=== PATIENT | female | born 1955 | race Caucasian/White ===

== ENCOUNTER 2023-10-07 13:34 | Emergency (ER) | payer OTHER, SELFPAY ==
[2023-10-07 13:41] VITALS: BP 133/58; PULSE 70; RESP 16; TEMP 36.6; O2SAT 99; BMI 30.5
--- NOTE | 2023-10-07 13:48 | DI.CT.S_ITS ---
PROCEDURE: CT HEAD/BRAIN WO CON INDICATIONS: headinjury 4/7 ongoing headaches/dizziness TECHNIQUE: Noncontrast 4.5 mm thick angled axial sections acquired from the foramen magnum to the vertex, with coronal and sagittal reformats. For radiation dose reduction, the following was used: automated exposure control, adjustment of mA and/or kV according to patient size. COMPARISON: None. FINDINGS: Image quality: Diagnostic. CSF spaces: Basal cisterns are patent. No extra-axial fluid collections. Ventricles are normal in size and shape. Brain: No midline shift. No intracranial masses or hemorrhage. [place]-white matter interface is normal. Skull and face: Calvarium and visualized facial bones are intact, without suspicious lesions. Sinuses: Visualized sinuses and mastoids are clear. IMPRESSION: No acute intracranial pathology. Dictated by: Mar Patel M.D. on 10/07/2023 at 14:49 Approved by: Mar Patel M.D. on 10/07/2023 at 14:51
--- NOTE | 2023-10-07 14:10 | PC.NURSE ---
Pt reports initial injury 08/16. An oven drawer came out and hit her in the left side of her head while unloading it off of a truck. No LOC, no thinners. States headache suddenly came back friday into friday. Sharp on the left by her yazidism that is also tender to touch, lightheaded, pressure feeling like my head is going to explode. Last had 400mg advil 400mg at 0630. She is worried because her mother of an aneurysm 10 years ago.
[2023-10-07] MEDS: SODIUM CHLORIDE 0.9% 1,000 ML 1000 ML IV (14:42)
[2023-10-07] MEDS: METOCLOPRAMIDE 10 MG/2 ML INJ IV (14:43)
[2023-10-07] MEDS: KETOROLAC 30 MG/ML VIAL 15 MG IV (14:43)
[2023-10-07] MEDS: DEXAMETHASONE 10 MG/ML VIAL IV (14:44)
--- NOTE | 2023-10-07 16:17 | ED.HEATRA ---
HPI - Head Injury <Thomas Tyler PA-C - Last Filed: 10/07/23 16:42> General Chief complaint: Head Injury Stated complaint: Head injury Time Seen by Provider: 10/07/23 14:02 Source: patient Mode of arrival: Ambulatory History of Present Illness HPI Narrative: 67-year-old female with past medical history osteoarthritis presents to the ED with a right-sided headache. Patient states that on August 16, patient was struck in the head by an object from the trunk of her car when she was opening it. Patient did not lose consciousness at the time. Patient states that her right temporal felt sore, however she felt fine after a few days. Patient states that over the last 2-3 days, patient has had recurring headaches in that same right temporal area. Patient is concerned that she might have some intracranial injuries, especially in the light of her mother recently dying from a brain aneurysm. Related Data Allergies Allergy/AdvReac Type Severity Reaction Status Date / Time No Known Drug Allergies Allergy Verified 10/07/23 13:44 Review of Systems <Thomas Tyler PA-C - Last Filed: 10/07/23 16:42> Constitutional Constitutional: Denies chills, Denies fatigue, Denies fever(s), Denies frequent falls, Reports headache(s), Denies lethargy and Denies weakness Eyes Eyes: Denies change in vision, Denies eye discharge, Denies irritation and Denies loss of vision ENT Ears, Nose, Mouth, and Throat: Denies change in voice, Denies dizziness, Reports headache(s), Denies neck pain, Denies sore throat and Denies throat swelling Cardiovascular Cardiovascular: Denies chest pain, Denies irregular heart rhythm, Denies lightheadedness, Denies palpitations, Denies dyspnea, Denies dyspnea on exertion and Denies orthopnea Respiratory Respiratory: Denies cough, Denies dyspnea, Denies dyspnea on exertion and Denies wheezing Gastrointestinal Gastrointestinal: Denies abdominal pain, Denies change in bowel habits, Denies diarrhea, Denies nausea and Denies vomiting Musculoskeletal Musculoskeletal: Denies neck pain and Denies numbness Integumentary/Breasts Skin/Breast: Denies pruritus, Denies erythema, Denies rash and Denies wounds Neurologic Neurologic: Denies behavioral changes, Denies confusion, Denies dizziness, Denies frequent falls, Reports headache(s), Denies loss of vision, Denies numbness and Denies weakness Psychiatric Psychiatric: Denies anxiety, Denies behavioral changes, Denies confusion, Denies depression, Denies homicidal ideation and Denies suicidal ideation Endocrine Endocrine: Denies fatigue, Denies flushing and Denies palpitations Hematologic/Lymphatic Hematologic/Lymphatic: Denies easy bruising Allergic/Immunologic Allergic/Immunologic: Denies urticaria, Denies throat swelling and Denies wheezing Patient History <Thomas Tyler PA-C - Last Filed: 10/07/23 16:42> Social History Smoking Status: Never smoker Smoking Status: Never smoker alcohol intake frequency: a few times a month Substance Use Type: does not use Exam <Thomas Tyler PA-C - Last Filed: 10/07/23 16:42> Narrative Exam Narrative: Const General:?cooperative, healthy appearing and comfortable [facility] Head:?normal to inspection Ears:?hearing grossly normal bilaterally Nose:?external nose normal Face and sinus:?normal facial exam and sinuses nontender Mouth:?oral mucosae normal Throat:?posterior oropharynx normal Eyes General:?appearance normal, both eyes and all related structures Neck Neck:?normal visual inspection and no lymphadenopathy noted Resp Effort & Inspection:?normal respiratory effort Auscultation:?clear to auscultation bilaterally Cardio Rate:?regular rate Rhythm:?regular rhythm Neuro General:?patient alert, patient awake and patient oriented x3; PERRLA, gait normal; CN 1 through 12 intact bilaterally Initial Vital Signs Initial Vital Signs: Vital Signs Temperature 98 F 10/07/23 13:41 Pulse Rate 70 10/07/23 13:41 Respiratory Rate 16 10/07/23 13:41 Blood Pressure 133/58 L 10/07/23 13:41 Pulse Oximetry 99 10/07/23 13:41 Oxygen Delivery Method Room Air 10/07/23 13:41 <Travis Davison DO - Last Filed: 10/07/23 16:50> Initial Vital Signs Initial Vital Signs: Vital Signs Temperature 98 F 10/07/23 13:41 Pulse Rate 70 10/07/23 13:41 Respiratory Rate 16 10/07/23 13:41 Blood Pressure 133/58 L 10/07/23 13:41 Pulse Oximetry 99 10/07/23 13:41 Oxygen Delivery Method Room Air 10/07/23 13:41 Course <Thomas Tyler PA-C - Last Filed: 10/07/23 16:42> Orders Ordered: ED Orders 10/07/23 13:48 CT head/brain wo con Stat Discontinued Medications Dexamethasone (Dexamethasone 10 Mg/Ml Vial) 10 mg IV NOW ONE Stop: 10/07/23 14:35 Last Admin: 10/07/23 14:44 Dose: 10 mg Documented By: DIMITRIOS Sodium Chloride (Normal Saline 0.9%) 1,000 mls @ 1,000 mls/hr IV BOLUS ONE Stop: 10/07/23 15:32 Last Infusion: 10/07/23 15:33 Dose: Infused Documented By: Admin: 10/07/23 14:42 Dose: 1,000 mls/hr Documented By: DIMITRIOS Ketorolac Tromethamine (Ketorolac 30 Mg/Ml Vial) 15 mg IV NOW ONE Stop: 10/07/23 14:34 Last Admin: 10/07/23 14:43 Dose: 15 mg Documented By: DIMITRIOS Metoclopramide HCl (Metoclopramide 10 Mg/2 Ml Inj) 10 mg IV NOW ONE Stop: 10/07/23 14:34 Last Admin: 10/07/23 14:43 Dose: 10 mg Documented By: DIMITRIOS Morphine Sulfate (Morphine 4 Mg/Ml Inj) 4 mg IV NOW ONE Stop: 10/07/23 16:20 Last Admin: 10/07/23 16:20 Dose: Not Given Documented By: DIMITRIOS Vital Signs Vital signs: Vital Signs - 8 hr 10/07/23 13:41 10/07/23 16:21 Temperature 98 F 98 F Pulse Rate 70 65 Respiratory Rate 16 16 Blood Pressure 133/58 L 140/64 Pulse Oximetry 99 99 Oxygen Delivery Method Room Air Room Air <Travis Davison DO - Last Filed: 10/07/23 16:50> Orders Ordered: ED Orders 10/07/23 13:48 CT head/brain wo con Stat Discontinued Medications Dexamethasone (Dexamethasone 10 Mg/Ml Vial) 10 mg IV NOW ONE Stop: 10/07/23 14:35 Last Admin: 10/07/23 14:44 Dose: 10 mg Documented By: DIMITRIOS Sodium Chloride (Normal Saline 0.9%) 1,000 mls @ 1,000 mls/hr IV BOLUS ONE Stop: 10/07/23 15:32 Last Infusion: 10/07/23 15:33 Dose: Infused Documented By: Admin: 10/07/23 14:42 Dose: 1,000 mls/hr Documented By: DIMITRIOS Ketorolac Tromethamine (Ketorolac 30 Mg/Ml Vial) 15 mg IV NOW ONE Stop: 10/07/23 14:34 Last Admin: 10/07/23 14:43 Dose: 15 mg Documented By: DIMITRIOS Metoclopramide HCl (Metoclopramide 10 Mg/2 Ml Inj) 10 mg IV NOW ONE Stop: 10/07/23 14:34 Last Admin: 10/07/23 14:43 Dose: 10 mg Documented By: DIMITRIOS Morphine Sulfate (Morphine 4 Mg/Ml Inj) 4 mg IV NOW ONE Stop: 10/07/23 16:20 Last Admin: 10/07/23 16:20 Dose: Not Given Documented By: DIMITRIOS Vital Signs Vital signs: Vital Signs - 8 hr 10/07/23 13:41 10/07/23 16:21 Temperature 98 F 98 F Pulse Rate 70 65 Respiratory Rate 16 16 Blood Pressure 133/58 L 140/64 Pulse Oximetry 99 99 Oxygen Delivery Method Room Air Room Air MDM - Head Injury <Thomas Tyler PA-C - Last Filed: 10/07/23 16:42> MDM Narrative Medical decision making narrative: 67-year-old female with past medical history osteoarthritis presents to the ED with a right-sided headache. Patient presentation is most consistent with a postconcussion syndrome, however given patient's anxiety levels with her mother's history, will obtain a CT head. Will treat headache. CT head with no acute findings. Patient was treated with IV fluids, ketorolac, dexamethasone, Reglan. Patient's headache completely resolved with the medications. Discussed postconcussion syndrome with patient. Recommend she follow-up with her PCP as soon as possible. ED return precautions discussed with patient. Patient verbalized understanding. Medical records reviewed: Yes Discharge Plan Departure Patient Disposition: Home Clinical Impression: Postconcussion syndrome Instructions: Concussion Activity Restrictions/Additional Instructions: You were evaluated in the ED today for a headache following a head injury. Your CT scan was normal. Your symptoms resolved with Reglan, ketorolac, dexamethasone and IV fluids. Please continue to stay well hydrated. You may take 600-800 mg of ibuprofen with food if the headache recurs. Please follow-up with your PCP as soon as possible. Return to the ED if you have worsening symptoms, persistent vomiting, lethargy. Stand Alone Forms: Patient Portal/API ED Sign-out <Travis Davison, DO - Last Filed: 10/07/23 16:50> Cosign ED Attending Cosignature Attestation: Dr Davison Co-Sign Statement: I was available for consultation during this patient's emergency department visit. This chart is signed by myself for administrative purposes only. I did not have direct contact with this patient during this visit. They were seen independently by the APC.
[2023-10-07 16:21] VITALS: BP 140/64; PULSE 65; RESP 16; TEMP 36.6; O2SAT 99
== END 2023-10-07 16:15 | disposition home or self-care (01) ==
PROVIDERS: Emergency Provider Student in an Organized Health Care Education/Training Program
DX: R51.9 Headache, unspecified (principal); F07.81 Postconcussional syndrome
CPT/HCPCS: 70450; 96374; 96375; 99283; J1100; J1885; J2765